=== PATIENT | female | born 1945 | race African-American/Black ===

== ENCOUNTER 2016-08-18 12:53 | Emergency (ER) | payer MEDICARE, OTHER ==
[~2016-08-18] VITALS: Ht 160 cm; Wt 55.0 kg
[~2016-08-18 12:53] MED LIST: FERROUS SULFATE PO
[2016-08-18] MEDS ORDERED: SODIUM CHLORIDE 0.9% 1,000 ML IV ONE (13:46)
[2016-08-18 14:23] LABS: BASOPHILS % 0.4 % (0.0-2.0); EOSINOPHILS % 1.4 % (0.0-5.0); HEMATOCRIT. 39.5 % (36.0-48.0); HEMOGLOBIN. 12.9 g/dL (12.0-16.0); LYMPHOCYTES % 21.6 % (20.0-50.0); MEAN CORPUSCULAR HEMOGLOBIN 32.5 pg (28.0-32.0); MEAN CORPUSCULAR HGB CONC 32.7 g/dL (31.0-37.0); MEAN CORPUSCULAR VOLUME 99.5 fL (81.0-99.0); MEAN PLATELET VOLUME 9.6 fl (7.4-10.4); MONOCYTES % 10.2 % (2.0-8.0); NEUTROPHILS % 66.4 % (40.0-76.0); PLATELET 204 x1000/uL (130-400); RED BLOOD CELL COUNT 3.98 mill/uL (4.2-5.4); RED CELL DISTRIBUTION WIDTH 13.1 % (11.6-14.6); WHITE BLOOD COUNT 6.1 x1000/uL (4.5-11.0)
[2016-08-18 14:33] LABS: ANION GAP 10; CALCIUM 9.2 mg/dL (8.5-10.1); CARBON DIOXIDE 28 mEq/L (21-32); CHLORIDE 107 mEq/L (98-107); INDEX HEMOLYSI 1 (1-3); INDEX ICTERIC 1 (1-4); INDEX LIPEMIC 1 (1-3); UREA NITROGEN BLOOD 15 mg/dL (7-21); eGFR 49 mL/min (>60)
[2016-08-18 14:36] LABS: TROPONIN I < 0.02 ng/mL (0.00-0.04)
[2016-08-18 15:45] VITALS: BP 160/71
== END 2016-08-18 16:03 | disposition home or self-care (01) ==
LOC: ER 14:29
DX: R53.1 Weakness (principal); R42 Dizziness and giddiness; D64.9 Anemia, unspecified; F17.200 Nicotine dependence, unspecified, uncomplicated
CPT/HCPCS: 36415; 71010; 80048; 84484; 85025; 93005; 96360; 99285; J7030

== ENCOUNTER 2016-12-16 22:49 | Emergency (ER) | payer MEDICARE, OTHER ==
[~2016-12-16] VITALS: Ht 160 cm; Wt 59.0 kg
[2016-12-16] MEDS ORDERED: SODIUM CHLORIDE 0.9% 1,000 ML IV ONE (23:23)
[2016-12-16 23:48] LABS: BASOPHILS % 0.5 % (0.0-2.0); EOSINOPHILS % 2.5 % (0.0-5.0); HEMATOCRIT. 40.1 % (36.0-48.0); HEMOGLOBIN. 13.2 g/dL (12.0-16.0); LYMPHOCYTES % 17.7 % (20.0-50.0); MEAN CORPUSCULAR HEMOGLOBIN 32.2 pg (28.0-32.0); MEAN CORPUSCULAR VOLUME 98.1 fL (81.0-99.0); MEAN PLATELET VOLUME 9.7 fl (7.4-10.4); MONOCYTES % 11.2 % (2.0-8.0); NEUTROPHILS % 68.1 % (40.0-76.0); PLATELET 202 x1000/uL (130-400); RED BLOOD CELL COUNT 4.09 mill/uL (4.2-5.4); RED CELL DISTRIBUTION WIDTH 13.1 % (11.6-14.6)
[2016-12-16 23:50] LABS: CLARITY URINE CLEAR (CLEAR); COLOR URINE YELLOW (YELLOW); GLUCOSE URINE NEGATIVE (NEGATIVE); KETONES URINE NEGATIVE (NEGATIVE); LEUKOCYTE ESTERASE URINE NEGATIVE (NEGATIVE); NITRITE URINE NEGATIVE (NEGATIVE); OCCULT BLOOD URINE NEGATIVE (NEGATIVE); PH URINE 5.5 (4.5-8.0); PROTEIN URINE NEGATIVE (NEGATIVE); SPECIFIC GRAVITY URINE 1.008 (1.005-1.030); UROBILINOGEN URINE 0.2 E.U./dL (0.2-1.0)
[2016-12-17 02:40] VITALS: BP 167/89
== END 2016-12-17 02:45 | disposition home or self-care (01) ==
LOC: ER 22:49
DX: R53.1 Weakness (principal); I10 Essential (primary) hypertension; R42 Dizziness and giddiness
CPT/HCPCS: 36415; 71010; 80048; 81003; 85025; 86850; 86900; 86901; 93005; 96360; 96361; 99285; J7030

== ENCOUNTER 2019-11-21 09:44 | Emergency (ER) | payer MEDICARE, MEDICAID, OTHER ==
[~2019-11-21] VITALS: Ht 162.6 cm; Wt 59.0 kg
[~2019-11-21 09:44] MED LIST changes: +FERR-71 MT; -FERROUS SULFATE PO; +MULT-1146 MT
[2019-11-21 09:54] VITALS: BP 162/97
[2019-11-21] MEDS ORDERED: FAMOTIDINE 20MG TABLET PO ONE (10:15)
[2019-11-21] MEDS ORDERED: PREDNISONE 20MG TABLET PO ONE (10:15)
[2019-11-21] MEDS ORDERED: DIPHENHYDRAMINE 50MG CAPSULE PO ONE (10:15)
== END 2019-11-21 10:38 | disposition home or self-care (01) ==
LOC: ER 09:44
DX: R21 Rash and other nonspecific skin eruption (principal); I10 Essential (primary) hypertension
CPT/HCPCS: 99284; J7512; Q0163

== ENCOUNTER 2019-12-04 10:49 | Emergency (ER) | payer MEDICARE, MEDICAID ==
[~2019-12-04] VITALS: Ht 160 cm; Wt 70.0 kg
[2019-12-04 11:33] VITALS: BP 197/100
== END 2019-12-04 11:35 | disposition home or self-care (01) ==
LOC: ER 10:49
DX: I10 Essential (primary) hypertension (principal); Z98.51 Tubal ligation status
CPT/HCPCS: 99283

== ENCOUNTER 2020-01-29 10:51 | Emergency (ER) | payer MEDICARE, OTHER ==
[~2020-01-29] VITALS: Ht 162.6 cm; Wt 59.0 kg
[2020-01-29 12:18] LABS: BASOPHILS % 0.3 % (0.0-2.0); EOSINOPHILS % 1.6 % (0.0-5.0); HEMATOCRIT. 39.8 % (36.0-48.0); HEMOGLOBIN. 13.2 g/dL (12.0-16.0); LYMPHOCYTES % 12.2 % (20.0-50.0); MEAN CORPUSCULAR HEMOGLOBIN 31.7 pg (28.0-32.0); MEAN CORPUSCULAR VOLUME 95.8 fL (81.0-99.0); MEAN PLATELET VOLUME 9.6 fl (7.4-10.4); MONOCYTES % 9.7 % (2.0-8.0); NEUTROPHILS % 76.2 % (40.0-76.0); PLATELET 236 x1000/uL (130-400); RED BLOOD CELL COUNT 4.16 mill/uL (4.2-5.4); RED CELL DISTRIBUTION WIDTH 13.1 % (11.6-14.6)
[2020-01-29 12:21] LABS: CHLORIDE 107 mEq/L (98-107)
[2020-01-29] MEDS ORDERED: LABETALOL 5MG/ML SYR 20 MG/4 ML SYRINGE IV ONE ×2 (15:30→16:45)
[2020-01-29 15:57] LABS: CLARITY URINE CLOUDY (CLEAR); COLOR URINE YELLOW (YELLOW); KETONES URINE NEGATIVE (NEGATIVE); LEUKOCYTE ESTERASE URINE 1+ (NEGATIVE); NITRITE URINE NEGATIVE (NEGATIVE); OCCULT BLOOD URINE NEGATIVE (NEGATIVE); PROTEIN URINE NEGATIVE (NEGATIVE); SPECIFIC GRAVITY URINE 1.017 (1.005-1.030)
[2020-01-29] MEDS ORDERED: NITROFURANTOIN 100MG M/M CAPSULE PO ONE (16:45)
[2020-01-29 18:22] VITALS: BP 175/89
== END 2020-01-29 18:23 | disposition home or self-care (01) ==
LOC: ER 10:51
DX: R53.1 Weakness (principal); I10 Essential (primary) hypertension; N39.0 Urinary tract infection, site not specified; Z98.51 Tubal ligation status
CPT/HCPCS: 36415; 71045; 80053; 81003; 83880; 84484; 85025; 93005; 96374; 96376; 99285; J3490

== ENCOUNTER 2020-07-07 17:32 | Emergency (ER) | payer MEDICARE, MEDICAID, OTHER ==
[~2020-07-07] VITALS: Ht 172.7 cm; Wt 70.0 kg
[2020-07-07 20:32] LABS: BASOPHILS % 0.5 % (0.0-2.0); EOSINOPHILS % 2.6 % (0.0-5.0); HEMATOCRIT. 38.8 % (36.0-48.0); HEMOGLOBIN. 12.5 g/dL (12.0-16.0); LYMPHOCYTES % 17.1 % (20.0-50.0); MEAN CORPUSCULAR VOLUME 96.5 fL (81.0-99.0); MEAN PLATELET VOLUME 9.5 fl (7.4-10.4); NEUTROPHILS % 68.8 % (40.0-76.0); PLATELET 280 x1000/uL (130-400); RED BLOOD CELL COUNT 4.02 mill/uL (4.2-5.4); RED CELL DISTRIBUTION WIDTH 13.5 % (11.6-14.6)
[2020-07-07 20:38] LABS: CHLORIDE 108 mEq/L (98-107)
[2020-07-07 21:13] LABS: CLARITY URINE CLEAR (CLEAR); COLOR URINE YELLOW (YELLOW); KETONES URINE TRACE (NEGATIVE); LEUKOCYTE ESTERASE URINE TRACE (NEGATIVE); NITRITE URINE NEGATIVE (NEGATIVE); OCCULT BLOOD URINE NEGATIVE (NEGATIVE); PH URINE 5.5 (4.5-8.0); PROTEIN URINE TRACE (NEGATIVE); SPECIFIC GRAVITY URINE 1.026 (1.005-1.030)
[2020-07-07] MEDS ORDERED: AMLO2.5T2 MT (21:36)
[2020-07-07 21:45] VITALS: BP 152/71
[2020-07-07] MEDS ORDERED: AMLODIPINE 2.5MG TABLET PO ONE (22:00)
== END 2020-07-07 21:48 | disposition home or self-care (01) ==
LOC: ER 17:32
DX: I16.0 Hypertensive urgency (principal)
CPT/HCPCS: 36415; 80053; 81003; 84484; 85025; 93005; 99284

== ENCOUNTER 2020-08-09 12:20 | Emergency (ER) | payer MEDICARE, OTHER ==
[~2020-08-09] VITALS: Ht 162.6 cm; Wt 59.0 kg
[~2020-08-09 12:20] MED LIST changes: +AMLO2.5T2 MT
[2020-08-09] MEDS ORDERED: AMLODIPINE 2.5MG TABLET PO ONE (12:45)
[2020-08-09] MEDS ORDERED: AMLO2.5T45 MT (13:51)
[2020-08-09 14:02] VITALS: BP 156/82
== END 2020-08-09 14:03 | disposition home or self-care (01) ==
LOC: ER 12:27
DX: Z76.0 Encounter for issue of repeat prescription (principal); I10 Essential (primary) hypertension; Z91.14 Patient's other noncompliance with medication regimen; F41.9 Anxiety disorder, unspecified; Z98.51 Tubal ligation status
CPT/HCPCS: 99283

== ENCOUNTER 2020-09-17 11:21 | Emergency (ER) | payer MEDICARE, OTHER ==
[~2020-09-17] VITALS: Ht 160 cm; Wt 62.0 kg
[~2020-09-17 11:21] MED LIST changes: -AMLO2.5T2 MT; +AMLO2.5T45 MT
[2020-09-17] MEDS ORDERED: ACETAMINOPHEN 325MG TABLET PO STA (12:01)
[2020-09-17 12:10] LABS: CLARITY URINE CLEAR (CLEAR); COLOR URINE YELLOW (YELLOW); KETONES URINE NEGATIVE (NEGATIVE); LEUKOCYTE ESTERASE URINE NEGATIVE (NEGATIVE); NITRITE URINE NEGATIVE (NEGATIVE); OCCULT BLOOD URINE NEGATIVE (NEGATIVE); PROTEIN URINE NEGATIVE (NEGATIVE); SPECIFIC GRAVITY URINE 1.005 (1.005-1.030); UROBILINOGEN URINE 0.2 E.U./dL (0.2-1.0)
[2020-09-17 12:26] LABS: BASOPHILS % 0.5 % (0.0-2.0); EOSINOPHILS % 2.3 % (0.0-5.0); HEMATOCRIT. 41.2 % (36.0-48.0); HEMOGLOBIN. 13.7 g/dL (12.0-16.0); LYMPHOCYTES % 14.4 % (20.0-50.0); MEAN CORPUSCULAR HEMOGLOBIN 31.8 pg (28.0-32.0); MEAN CORPUSCULAR VOLUME 95.8 fL (81.0-99.0); MEAN PLATELET VOLUME 9.4 fl (7.4-10.4); MONOCYTES % 10.4 % (2.0-8.0); NEUTROPHILS % 72.4 % (40.0-76.0); PLATELET 286 x1000/uL (130-400); RED CELL DISTRIBUTION WIDTH 13.4 % (11.6-14.6)
[2020-09-17 12:32] LABS: CHLORIDE 105 mEq/L (98-107)
[2020-09-17 12:36] LABS: PROTHROMBIN TIME 10.3 sec (9.6-11.0)
[2020-09-17] MEDS ORDERED: DICL50TA9 PO (13:10)
[2020-09-17 13:48] VITALS: BP 169/91
== END 2020-09-17 13:51 | disposition home or self-care (01) ==
LOC: ER 11:21
DX: R09.1 Pleurisy (principal); M41.9 Scoliosis, unspecified; I10 Essential (primary) hypertension; F41.9 Anxiety disorder, unspecified; Z98.51 Tubal ligation status; Z90.89 Acquired absence of other organs
CPT/HCPCS: 36415; 71045; 80053; 81003; 85025; 99284

== ENCOUNTER 2021-06-30 20:05 | Emergency (ER) | payer MEDICARE, MEDICAID ==
[~2021-06-30] VITALS: Ht 157.5 cm; Wt 65.3 kg
[~2021-06-30 20:05] MED LIST changes: +DICL50TA9 PO
[2021-06-30] MEDS ORDERED: ASPIRIN 325MG EC TABLET PO ONE (21:15)
[2021-06-30] MEDS ORDERED: ATORVASTATIN CALCIUM 40MG TABLET PO SCH (21:15)
[2021-06-30 21:29] LABS: HEMATOCRIT. 36.2 % (36.0-48.0); HEMOGLOBIN. 11.5 g/dL (12.0-16.0); MEAN CORPUSCULAR HEMOGLOBIN 31.3 pg (28.0-32.0); MEAN CORPUSCULAR VOLUME 98.2 fL (81.0-99.0); MEAN PLATELET VOLUME 9.1 fl (7.4-10.4); PLATELET 261 x1000/uL (130-400); RED BLOOD CELL COUNT 3.69 mill/uL (4.2-5.4); RED CELL DISTRIBUTION WIDTH 13.6 % (11.6-14.6)
[2021-06-30 21:36] LABS: CHLORIDE 104 mEq/L (98-107)
[2021-06-30 21:40] LABS: ETHANOL BLOOD < 10 mg/dL
[2021-06-30] MEDS ORDERED: IOHEXOL-350 100 ML BOTTLE ONE ×2 (21:58→23:28)
[2021-06-30] MEDS ORDERED: ESMOLOL HCL 10MG/ML 10ML VIAL IV SCH (22:00)
[2021-06-30] MEDS ORDERED: ESMOLOL 2500MG PREMIX 250 ML IV SCH ×2 (22:00)
[2021-06-30 22:14] LABS: PLATELET ESTIMATE NORMAL
[2021-06-30 22:50] VITALS: BP 120/76
== END 2021-06-30 23:40 | disposition short-term general hospital (02) ==
LOC: ER 20:05
DX: I71.00 Dissection of unspecified site of aorta (principal); I10 Essential (primary) hypertension; Z98.51 Tubal ligation status
CPT/HCPCS: 36415; 70450; 70496; 70498; 71045; 71275; 74174; 80053; 80320; 84484; 85025; 93005; 96374; 99291; J3490; Q9967; G0480